=== PATIENT | male | born 1930 | race Caucasian/White ===

== ENCOUNTER → 2017-02-05 | Outpatient (CLI) | payer MEDICARE | LOC: LAB 10:53 | DX: D68.51 Activated protein C resistance (principal); E03.4 Atrophy of thyroid (acquired) ==

== ENCOUNTER → 2017-02-22 | Outpatient (CLI) | payer MEDICARE ==
[2017-02-22 11:11] LABS: PROTHROMBIN TIME 20.6 SECONDS (9.0-12.0)
== END ==
LOC: LAB 10:29
PROVIDERS: Family Medicine
DX: D68.51 Activated protein C resistance (principal)

== ENCOUNTER → 2017-03-01 | Outpatient (CLI) | payer MEDICARE ==
[2017-03-01 10:59] LABS: PROTHROMBIN TIME 19.5 SECONDS (9.0-12.0)
== END ==
LOC: LAB 10:27
PROVIDERS: Family Medicine
DX: I71.4 Abdominal aortic aneurysm, without rupture (principal)

== ENCOUNTER → 2017-03-31 | Outpatient (CLI) | payer MEDICARE ==
[2017-03-31 08:19] LABS: HEMOGLOBIN 14.8 g/dL (13.5-18.0); MEAN PLATELET VOLUME 11.3 fl (7.4-10.4); RED BLOOD COUNT 4.82 M/mm3 (4.20-5.60); RED CELL DISTRIBUTION WIDTH 14.9 % (11.5-14.5); WHITE BLOOD COUNT 8.6 K/mm3 (4.8-10.8)
[2017-03-31 08:33] LABS: ALBUMIN 3.8 g/dL (3.5-5.0); BUN/CREATININE RATIO 17.2 (6.0-26.0); CALCIUM 9.2 mg/dL (8.4-10.2); POTASSIUM 3.5 mmol/L (3.6-5.0); TOTAL BILIRUBIN 0.9 mg/dL (0.2-1.3); TOTAL PROTEIN 7.6 g/dL (6.3-8.2)
[2017-03-31 08:40] LABS: PROTHROMBIN TIME 19.9 SECONDS (9.0-12.0)
== END ==
LOC: LAB 08:04
PROVIDERS: Family Medicine
DX: E78.2 Mixed hyperlipidemia (principal); I10 Essential (primary) hypertension; E03.4 Atrophy of thyroid (acquired); D68.51 Activated protein C resistance; I71.4 Abdominal aortic aneurysm, without rupture; R73.9 Hyperglycemia, unspecified

== ENCOUNTER 2017-04-16 21:42 | Emergency (ER) | payer MEDICARE ==
[2017-04-16 22:56] LABS: EOS # 0.4 (0.04-0.40); EOS % 4.1 % (0.0-4.0); HEMATOCRIT 40.5 % (42.0-52.0); HEMOGLOBIN 13.3 g/dL (13.5-18.0); LYMPH# 1.8 (1.50-4.00); MEAN CELL VOLUME 92 fl (78-100); MEAN CORPUSCULAR HEMOGLOBIN 30 pg (27-31); MEAN CORPUSCULAR HGB CONC 33 g/dL (33-37); MEAN PLATELET VOLUME 11.2 fl (7.4-10.4); MONO # 0.7 (0.20-0.80); PLATELET COUNT 170 K/mm3 (130-400); RED BLOOD COUNT 4.39 M/mm3 (4.20-5.60); RED CELL DISTRIBUTION WIDTH 15.1 % (11.5-14.5); WHITE BLOOD COUNT 8.9 K/mm3 (4.8-10.8)
[2017-04-16 23:07] LABS: ALBUMIN 3.4 g/dL (3.5-5.0); POTASSIUM 3.9 mmol/L (3.6-5.0); TOTAL BILIRUBIN 0.6 mg/dL (0.2-1.3)
[2017-04-16 23:12] LABS: PROTHROMBIN TIME 22.1 SECONDS (9.0-12.0)
[2017-04-16 23:55] LABS: URINE COLOR YELLOW
[2017-04-16 23:56] LABS: URINE APPEARANCE HAZY; URINE BILIRUBIN NEGATIVE (NEGATIVE); URINE BLOOD TRACE (NEGATIVE); URINE GLUCOSE NEGATIVE (NEGATIVE); URINE KETONE NEGATIVE (NEGATIVE); URINE LEUKOCYTE ESTERASE TRACE (NEGATIVE); URINE NITRATE NEGATIVE (NEGATIVE); URINE PROTEIN(semi-quant) 2+ mg/dL (NEGATIVE); URINE UROBILINOGEN NORMAL (NORMAL)
[2017-04-17 01:15] VITALS: BP 134/89
[2017-04-17] MEDS ORDERED: LASIX20 M1 PO (01:39)
[2017-04-17] MEDS ORDERED: LOVASTATIN20 M1 PO (01:40)
[2017-04-17] MEDS ORDERED: FLOMAX0.4 MG PO (01:40)
[2017-04-17] MEDS ORDERED: COUMADIN 5MG5 MG/TAB PO (01:41)
[2017-04-17] MEDS ORDERED: SYNTHROID0.05 MG PO (01:41)
[2017-04-17] MEDS ORDERED: MYSOLINE50 M1 PO (01:41)
[2017-04-17] MEDS ORDERED: PROPRANOLOL ER80 MG PO (01:42)
== END 2017-04-17 01:15 | disposition short-term general hospital (02) ==
LOC: ED 21:42
PROVIDERS: Family Medicine
DX: R07.9 Chest pain, unspecified (principal); R79.89 Other specified abnormal findings of blood chemistry; R06.00 Dyspnea, unspecified; R41.0 Disorientation, unspecified; I49.9 Cardiac arrhythmia, unspecified; E78.5 Hyperlipidemia, unspecified; D68.51 Activated protein C resistance; I11.0 Hypertensive heart disease with heart failure; I50.9 Heart failure, unspecified; R25.1 Tremor, unspecified
CPT/HCPCS: J1940

== ENCOUNTER → 2017-05-27 | Outpatient (CLI) | payer MEDICARE ==
[~2017-05-27] MED LIST: COUMADIN 5MG5 MG/TAB PO; FLOMAX0.4 MG PO; LASIX20 M1 PO; LOVASTATIN20 M1 PO; MYSOLINE50 M1 PO; PROPRANOLOL ER80 MG PO; SYNTHROID0.05 MG PO
[2017-05-27 07:07] LABS: PROTHROMBIN TIME 46.4 SECONDS (9.0-12.0)
== END ==
LOC: LAB 06:40
PROVIDERS: Family Medicine
DX: I49.9 Cardiac arrhythmia, unspecified (principal); Z79.01 Long term (current) use of anticoagulants